=== PATIENT | male | born 1970 | race Caucasian/White ===

== ENCOUNTER → 2018-12-28 | Day surgery (SDC) | payer BC ==
[~2018-12-28] MED LIST: BUPIVACAINE HCL 0.5 % INJ/PF 30 ML SDV ONE; LIDOCAINE 1% INJ-PF (10 MG/ML) 30 ML SDV ONE; METHYLPREDNISOLONE ACETATE INJ 80 MG/1 ML VIAL ONE
--- NOTE | 2018-12-28 14:00 | RADIOLOGY REPORT (SQ) ---
EXAM DESCRIPTION: INJECT/ASPIR HIP/SHLDR/KNEE; FLUORO/NEEDLE PLACEMENT COMPLETED DATE/TIME: 12/28/2018 1:33 pm REASON FOR STUDY: OA OF LEFT HIP (M16.12) M16.12 UNILATERAL PRIMARY OSTEOARTHRITIS, LEFT HIP COMPARISON: None. FLUOROSCOPY TIME: 11 seconds 1 digital radiographic image saved to PACS. LIMITATIONS: None. PROCEDURE: SITE OF INJECTION: Left hip LOCALIZING CONTRAST TYPE AND DOSE: 1 mL of Omnipaque 300 MEDICATION TYPE AND DOSE: 80 mg of Depo-Medrol, 5 mL of 0.5% bupivacaine Using local anesthesia and sterile technique with fluoroscopic guidance, the needle was advanced into the joint. Iodinated contrast was injected to verify intraarticular placement. This was followed by therapeutic injection of the indicated medications. The needle was removed. There were no immediat e complications. Preprocedure pain level: 7 out of 10 Postprocedure pain level: 2 out of 10 IMPRESSION: THERAPEUTIC INJECTION OF THE LEFT HIP JOINT ABOVE. COMMENT: Patient medication list reviewed: Yes- Quality ID# [id number]:Eligible professional attests to doc umenting in the medical record they obtained, updated, or reviewed the patient's current medications. . Quality ID 145: Final reports for procedures using fluoroscopy that document radiation exposure denisse hari, or exposure time and number of fluorographic images (if radiation exposure indices are not avail able) TECHNICAL DOCUMENTATION: JOB ID: [id number] [employer]- All Rights Reserved Reading location - IP/workstation name: [email or web address]
== END ==
LOC: RAD 12:38 → EDSTATUS 13:00
PROVIDERS: ATTEND Orthopaedic Surgery
DX: M16.12 Unilateral primary osteoarthritis, left hip (principal)
CPT/HCPCS: 20610; 77002; J3490 ×2; J1040

== ENCOUNTER → 2019-04-01 | Day surgery (SDC) | payer BC ==
--- NOTE | 2019-04-01 14:35 | RADIOLOGY REPORT (SQ) ---
EXAM DESCRIPTION: INJECT/ASPIR HIP/SHLDR/KNEE; FLUORO/NEEDLE PLACEMENT COMPLETED DATE/TIME: 04/01/2019 1:44 pm REASON FOR STUDY: M16.12 UNILATERAL PRIMARY OSTEOARTHRITIS, LEFT HIP M16.12 UNILATERAL PRIMARY OSTE OARTHRITIS, LEFT HIP COMPARISON: None. FLUOROSCOPY TIME: 17 seconds. 1 images saved to PACS. LIMITATIONS: None. PROCEDURE: SITE OF INJECTION: Left hip. LOCALIZING CONTRAST TYPE AND DOSE: 1 mL Omnipaque. MEDICATION TYPE AND DOSE: 80 mg Depo-Medrol and 5 mL 0.5% bupivacaine. Using local anesthesia and sterile technique with fluoroscopic guidance, the needle was advanced into the joint. Iodinated contrast was injected to verify intraarticular placement. This was followed by therapeutic injection of the indicated medications. The needle was removed. There were no immediat e complications. Preprocedure pain level: 4/5. Postprocedure pain level: 0/5. IMPRESSION: THERAPEUTIC INJECTION OF THE LEFT HIP JOINT ABOVE. COMMENT: Patient medication list reviewed: Yes- Quality ID# [id number]:Eligible professional attests to doc umenting in the medical record they obtained, updated, or reviewed the patient's current medications. . Quality ID 145: Final reports for procedures using fluoroscopy that document radiation exposure densise hari, or exposure time and number of fluorographic images (if radiation exposure indices are not avail able) TECHNICAL DOCUMENTATION: JOB ID: [id number] [employer]- All Rights Reserved Reading location - IP/workstation name: [email or web address]
--- NOTE | 2019-04-01 14:35 | RADIOLOGY REPORT (SQ) ---
EXAM DESCRIPTION: INJECT/ASPIR HIP/SHLDR/KNEE; FLUORO/NEEDLE PLACEMENT COMPLETED DATE/TIME: 04/01/2019 1:44 pm REASON FOR STUDY: M16.12 UNILATERAL PRIMARY OSTEOARTHRITIS, LEFT HIP M16.12 UNILATERAL PRIMARY OSTE OARTHRITIS, LEFT HIP COMPARISON: None. FLUOROSCOPY TIME: 17 seconds. 1 images saved to PACS. LIMITATIONS: None. PROCEDURE: SITE OF INJECTION: Left hip. LOCALIZING CONTRAST TYPE AND DOSE: 1 mL Omnipaque. MEDICATION TYPE AND DOSE: 80 mg Depo-Medrol and 5 mL 0.5% bupivacaine. Using local anesthesia and sterile technique with fluoroscopic guidance, the needle was advanced into the joint. Iodinated contrast was injected to verify intraarticular placement. This was followed by therapeutic injection of the indicated medications. The needle was removed. There were no immediat e complications. Preprocedure pain level: 4/5. Postprocedure pain level: 0/5. IMPRESSION: THERAPEUTIC INJECTION OF THE LEFT HIP JOINT ABOVE. COMMENT: Patient medication list reviewed: Yes- Quality ID# [id number]:Eligible professional attests to doc umenting in the medical record they obtained, updated, or reviewed the patient's current medications. . Quality ID 145: Final reports for procedures using fluoroscopy that document radiation exposure denisse hari, or exposure time and number of fluorographic images (if radiation exposure indices are not avail able) TECHNICAL DOCUMENTATION: JOB ID: [id number] [employer]- All Rights Reserved Reading location - IP/workstation name: [email or web address]
== END ==
LOC: RAD 12:48
PROVIDERS: ATTEND Orthopaedic Surgery
DX: M16.12 Unilateral primary osteoarthritis, left hip (principal)
CPT/HCPCS: 20610; 77002; J3490 ×2; J1040